=== PATIENT | female | born 1985 | race Caucasian/White ===

== ENCOUNTER 2016-04-19 10:12 | Outpatient (CLI) | payer OTHER ==
[~2016-04-19 10:12] MED LIST: PRENAT PO
--- NOTE | 2016-04-19 11:01 | RADRPT ---
PROCEDURE: US OB. CLINICAL INDICATION: Size and dates , post dates TECHNIQUE: Multiple sonographic images of the pelvis and gravid uterus were obtained. The images were reviewed on a PACS workstation. COMPARISON: No prior studies are available for comparison. FINDINGS: There is a single viable intrauterine gestation. Cardiac activity is present with 146 beats per min [place]iston. There is a vertex presentation. The placenta is anterior. There is no evidence for an abruption or placenta previa. Measurements were made in order to determine age. The results are as follows: BPD =9.9 cm HC =34.9 cm AC =35.3 cm FL =7.5 cm Estimated gestational age of approximately 39 weeks and 5 days based on ultrasound measurements. Clinical age: 40 weeks and 5 days. The estimated date of delivery is 04/21/16, based on ultrasound measurements. The EFW = 3769 g, 52.3%, based on LMP age. RPTAT: AA IMPRESSION: Single viable intrauterine gestation of approximately 39 weeks and 5 days based on ultrasound measu rements. .Justin Delaney MD, Date Time Electronically viewed and signed by .Justin Delaney MD, on 04/19/2016 11:01 .S/
--- NOTE | 2016-04-19 11:04 | RADRPT ---
PROCEDURE: US OB biophysical profile. CLINICAL INDICATION: decreased movements, post dates TECHNIQUE: Multiple sonographic images of the pelvis were obtained. The images were reviewed on a PACS workstation. COMPARISON: No prior studies are available for comparison. FINDINGS: There is a single viable intrauterine gestation. Cardiac activity is present with 150 beats per min triston. There is a vertex presentation. The placenta is anterior. There is no evidence of placental abruption. There is a normal amount of amniotic fluid with an FATOU = 14.8 cm. Biophysical profile: movement 2/2 tone 2/2. breathing 2/2 FATOU 2/2 Total 10/16 RPTAT: AA . IMPRESSION: Normal biophysical profile. . .Justin Delaney MD, Date Time Electronically viewed and signed by .Justin Delaney MD, MD on 04/19/2016 11:04 .S/
--- NOTE | 2016-04-19 11:51 | PN ---
Date/Time of Note Date/Time of Note DATE: 04/19/16 TIME: 11:29 OB Subjective Subjective Subjective April 19, 2016 Triage Consult: This is a triage consult on Sonal Epps This patient is a 30 years old 1 para 0 with EDC of 04/14/2016. Which makes her 40 weeks and 5 days She was sent from the clinic for evaluation of the condition. Patient does not agree with induction and she wants to wait till completed 41 weeks or the start of spontaneous contraction . On examination Her ear nose and throat appears to be normal No thyroid enlargement. No lymph node enlargement anywhere in the body Chest is clear to auscultation Heart is normal sinus rhythm Blood pressure 135/73 pulse rate 90 temperature 98.1 Abdomen is soft At this time she does not have any contraction. heart tone is normal No deceleration, fairly good variability. Occasional acceleration She refused to have a pelvic examination We do not know the status of her cervix Her NST is reactive Biophysical profile is 8/8 ,FATOU 14.87 The estimated weight is 3769 g As I mentioned she is not interested in being induced In consultation with Dr. Saravia will send her home to be seen in the clinic and to return in 2 days for further monitoring if she is still . MAEVE GUERRA MD Apr 19, 2016 11:41
== END 2016-04-19 11:30 | disposition home or self-care (01) ==
LOC: OBT 10:12 → L-D 10:13 → OBT 11:30
PROVIDERS: ATTEND Obstetrics & Gynecology
DX: O48.0 Post-term pregnancy (principal); Z3A.40 40 weeks gestation of pregnancy
CPT/HCPCS: 76815; 76818; Z7500; G0463

== ENCOUNTER 2016-04-21 15:55 | Outpatient (CLI) | payer OTHER ==
[~2016-04-21] VITALS: Ht 165.1 cm; Wt 93.9 kg
[2016-04-21 16:04] VITALS: BP 137/64; PULSE 82; RESP 17; Ht 165.1 cm; Wt 93.9 kg
--- NOTE | 2016-04-21 16:57 | RADRPT ---
PROCEDURE: US OB biophysical profile. CLINICAL INDICATION: decreased movements, post dates TECHNIQUE: Multiple sonographic images of the pelvis were obtained. The images were reviewed on a PACS workstation. COMPARISON: 04/19/2016 FINDINGS: There is a single viable intrauterine gestation. Cardiac activity is present with 136 beats per min triston. There is a vertex presentation. The placenta is anterior. There is no evidence of placental abruption. There is a slightly decreased amount of amniotic fluid with an FATOU = 7.2 cm. Biophysical profile: movement 2/2 tone 2/2. breathing 2/2 FATOU 2/2 Total 10/16 RPTAT: AA . IMPRESSION: Normal biophysical profile. Mild oligohydramnios. . .Justin Delaney MD, Date Time Electronically viewed and signed by .Justin Delaney MD, on 04/21/2016 16:57 .S/
--- NOTE | 2016-04-21 18:05 | TRIAGE ---
OB Triage Datetime Report Generated by CPN: 04/21/2016 18:05 Datetime: 04/21/2016 17:53 Labor Evaluation Frequency: 0 Monitor Mode: External Pattern: Normal: <= 5 Contractions in 10 Minutes Resting Tone [place]: Relaxed Heart Rate FHR Baseline Rate: 135 Monitor Mode: External US FHR Baseline Changes: No Baseline Change Variability: Moderate 6-25 bpm Accelerations: 15X15 Decelerations: None Category: Category I Pain Assessment Pain Scale: 0 Pain Presence: None/Denies Pain Type: N/A Vaginal Exam Membrane Status: Intact Datetime: 04/21/2016 16:36 Labor Evaluation Frequency: 0 Monitor Mode: External Pattern: Normal: <= 5 Contractions in 10 Minutes Resting Tone [place]: Relaxed Heart Rate FHR Baseline Rate: 135 Monitor Mode: External US FHR Baseline Changes: No Baseline Change Variability: Moderate 6-25 bpm Accelerations: 15X15 Decelerations: None Category: Category I Pain Assessment Pain Scale: 0 Pain Presence: None/Denies Pain Type: N/A Vaginal Exam Membrane Status: Intact Datetime: 04/21/2016 16:13 Time of Arrival: 04/21/2016 15:53 EGA: 41.0 Arrived By: Ambulatory Arrived From: Home Chief Complaint: PT PRESENTS TO TRIAGE FOR FOLLOW UP NST/BPP DUE TO BEING POST TERM(41 WEEKS) Movement: Present Contractions: Denies/Absent Rupture of Membranes: Denies Vaginal Bleeding: None Vaginal Discharge: Denies Recent Sexual Intercouse: Denies Abdominal Trauma: Not Applicable Patient Complaints: None Additional Patient Complaints: DEPRESSION Time Provider Notified: 04/21/2016 16:08 Provider Notified: [facility] Initial Plan: EFM/BPP/NST Datetime: 04/21/2016 16:00 Assessment Type: Triage Maternal Assessment Level of Consciousness: Fully Conscious DTR's/Clonus: DTRs 2+; No Clonus Headache: Denies Blurred Vision: No Respiratory Effort: Unlabored; Regular Rhythm Breath Sounds, Left: Clear and Equal Breath Sounds, Right: Clear and Equal Nausea/Vomiting: Denies RUQ Epigastric Pain: Denies Lower Extremities Edema: None Degree: None Upper Extremities Edema: None Degree: None Facial Edema: None Fall Risk Assessment History of Falling: (0) No Secondary Diagnosis: (0) No Ambulatory Aid: (0) Bedrest/Nurse Assist IV Therapy: (0) No Gait: (0) Normal/Bedrest/Immobile Mental Status: (0) Oriented to Own Ability Fall Score: 0 Fall Risk Score Definition: No Risk: No action required Pain Assessment Pain Scale: 0 Pain Presence: None/Denies Pain Type: N/A Datetime: 04/19/2016 11:16 Stage of : OB Triage Datetime: 04/19/2016 10:27 Stage of : OB Triage Assessment Type: Triage Maternal Assessment Level of Consciousness: Fully Conscious DTR's/Clonus: DTRs 2+; No Clonus Headache: Denies Blurred Vision: No Respiratory Effort: Unlabored; Regular Rhythm; Equal Expansion Breath Sounds, Left: Clear and Equal Breath Sounds, Right: Clear and Equal Nausea/Vomiting: Denies RUQ Epigastric Pain: Denies Lower Extremities Edema: None Degree: None Upper Extremities Edema: None Degree: None Facial Edema: None Temperature Route: Axillary Fall Risk Assessment History of Falling: (0) No Secondary Diagnosis: (0) No Ambulatory Aid: (0) Bedrest/Nurse Assist IV Therapy: (0) No Gait: (0) Normal/Bedrest/Immobile Mental Status: (0) Oriented to Own Ability Fall Score: 0 Fall Risk Score Definition: No Risk: No action required Labor Evaluation Frequency: X1 Monitor Mode: External Duration (sec)2399: 50 Quality: Mild Pattern: Normal: <= 5 Contractions in 10 Minutes Resting Tone [place]: Relaxed Heart Rate FHR Baseline Rate: 145 Monitor Mode: External US Variability: Moderate 6-25 bpm Accelerations: 10X10 Decelerations: None Category: Category I Pain Assessment Pain Scale: 0 Pain Presence: None/Denies Pain Type: N/A Pain Goal: 3 Pain Relief Measures: Comfort Measures Datetime: 01/24/2016 12:03 Time of Arrival: 04/19/2016 10:12 EGA: 40.5 Arrived By: Ambulatory Arrived From: Dr. Prado Chief Complaint: OCCAS UC'S, DENIES BLEEDING OR LEAKING OF FLUID Movement: Present Contractions: Occasional Rupture of Membranes: Denies Vaginal Bleeding: None Vaginal Discharge: Present Recent Sexual Intercouse: Denies Abdominal Trauma: Not Applicable Patient Complaints: Cramping Initial Plan: MONITOR, NST/BPP, FATOU, EFW Datetime: 01/24/2016 11:30 Assessment Type: Triage Maternal Assessment Level of Consciousness: Fully Conscious DTR's/Clonus: DTRs 2+; No Clonus Headache: Denies Blurred Vision: No Respiratory Effort: Unlabored; Regular Rhythm; Equal Expansion Breath Sounds, Left: Clear and Equal Breath Sounds, Right: Clear and Equal Nausea/Vomiting: Denies RUQ Epigastric Pain: Denies Lower Extremities Edema: None Degree: None Upper Extremities Edema: None Degree: None Facial Edema: None Fall Risk Assessment History of Falling: (0) No Secondary Diagnosis: (0) No Ambulatory Aid: (0) Bedrest/Nurse Assist IV Therapy: (0) No Gait: (0) Normal/Bedrest/Immobile Mental Status: (0) Oriented to Own Ability Fall Score: 0 Fall Risk Score Definition: No Risk: No action required Datetime: 01/24/2016 11:28 EGA: 28.3 Datetime: 01/24/2016 11:27 Time of Arrival: 01/24/2016 11:15 Arrived By: Ambulatory Chief Complaint: C/O NAUSEA FOR 2 DAYS Movement: Present Contractions: Denies/Absent Rupture of Membranes: Denies Vaginal Bleeding: None Vaginal Discharge: Denies Recent Sexual Intercouse: Denies Abdominal Trauma: Not Applicable Patient Complaints: Nausea Provider Notified: CHARLIE
--- NOTE | 2016-04-21 18:12 | QN ---
Documentation Comment Laborist Dr Saravia's pt 30 y.o. G1 with an IUP at 41 weeks here for a BPP with FATOU and NST for postdates. +FM. No VB or leaking or UC's, per pt. Pt states her cx was closed on exam 04/16 and she thought the exam was a little too invasive and uncomfortable so does not want to be rechecked, much less have her membranes stripped although that helped her sister (who is with her) go into labor. PMHx: none. PSHx: none. NKDA. BP= 137/64. T= 98.0. NST: baseline 130 bpm with accels to 170 bpm. No decels. No UC's. BPP 10/16. FATOU 7.2. VTX. Anterior placenta. A: IUP at 41 weeks. Postdates. Pt adamantly does not want to be induced and even checked. P: Per Dr Saravia, he wants her to be rechecked in 2 days 04/23. Review things she can do to try to induce labor including having intercourse, ambulating, amongst other things. ROSALBA CURRY MD Apr 21, 2016 18:12
== END 2016-04-21 17:58 | disposition home or self-care (01) ==
LOC: OBT 15:55 → L-D 15:57 → OBT 17:58
PROVIDERS: ATTEND Obstetrics & Gynecology
DX: O48.0 Post-term pregnancy (principal); Z3A.41 41 weeks gestation of pregnancy
CPT/HCPCS: 76818; Z7500; G0463

== ENCOUNTER 2016-04-24 15:13 | Outpatient (CLI) | payer OTHER ==
[~2016-04-24] VITALS: Ht 165.1 cm; Wt 92.6 kg
[2016-04-24 15:22] VITALS: Ht 165.1 cm; Wt 92.6 kg
[2016-04-24 15:31] VITALS: BP 125/70; PULSE 77; RESP 18
--- NOTE | 2016-04-24 15:58 | RADRPT ---
PROCEDURE: OB ultrasound for biophysical profile CLINICAL INDICATION: Biophysical profile. . Post dates TECHNIQUE: Multiple sonographic images of the pelvis were obtained. Transabdominal view of the gr avid uterus are available for review. The images were reviewed on a PACS workstation. COMPARISON: OB ultrasound 04/21/2016 FINDINGS: Single intrauterine gestation. Presentation: cephalic. Placenta: anterior breathing movement = 2/2 tone = 2/2 motion = 2/2 FATOU = 2/2 FATOU = 8.2 cm heart rate: 163 beats per minute IMPRESSION: Single intrauterine gestation. Biophysical profile 10/16 Normal FATOU RPTAT: AADD .Krishan Barrientos MD, Date Time Electronically viewed and signed by .Krishan Barrientos MD, on 04/24/2016 15:58 .B/
--- NOTE | 2016-04-24 16:00 | RADRPT ---
PROCEDURE: Obstetrical ultrasound. CLINICAL INDICATION: , evaluation. Pelvic pain. Post dates TECHNIQUE: Transabdominal sonographic images of the pelvis are obtained. COMPARISON: OB ultrasound 04/21/2016 FINDINGS: Single intrauterine gestation. There is a cephalic presentation. Measurements were made in order to determine age. The results are as follows: BPD = 9.79 cm HC = 34.75 cm AC = 36.42 cm FL = 7.64 cm Heart rate = 146 beats per minute The placenta is anterior. There is no evidence for an abruption or placenta previa. Ovaries are not visualized. IMPRESSION: Single intrauterine gestation of approximately 40 weeks 0 days by ultrasound criteria. Estimated weight = 3972 g RPTAT: AADD .Krishan Barrientos MD, Date Time Electronically viewed and signed by .Krishan Barrientos MD, on 04/24/2016 15:59 .B/
== END 2016-04-24 16:30 | disposition home or self-care (01) ==
LOC: OBT 15:13 → L-D 15:13 → OBT 16:30
PROVIDERS: ATTEND Obstetrics & Gynecology
DX: O48.0 Post-term pregnancy (principal); R10.2 Pelvic and perineal pain; Z3A.40 40 weeks gestation of pregnancy
CPT/HCPCS: 76815; 76818; Z7500; G0463

== ENCOUNTER 2016-04-26 14:23 | Outpatient (CLI) | payer OTHER ==
[~2016-04-26] VITALS: Ht 165.1 cm; Wt 93.6 kg
[2016-04-26 14:39] VITALS: Ht 165.1 cm; Wt 93.6 kg
--- NOTE | 2016-04-26 15:37 | RADRPT ---
PROCEDURE: US OB biophysical profile. CLINICAL INDICATION: evaluation TECHNIQUE: Multiple sonographic images of the pelvis were obtained. The images were reviewed on a PACS workstation. COMPARISON: Save ultrasound from 04/24/2016 FINDINGS: There is a single viable intrauterine gestation. Cardiac activity is present with 154 beats per min [place]. There is a vertex presentation. The placenta is anterior. There is a 2.2 cm round hypoechoic lesion in the placenta. There is no ev idence of placental abruption. There is a normal amount of amniotic fluid with an FATOU = 15.5 cm. Biophysical profile: movement 2/2 tone 2/2. breathing 2/2 FATOU 2/2 Total 10/16 RPTAT: AA . IMPRESSION: Normal biophysical profile. Normal FATOU of 15.5 cm. 2.2 cm round hypoechoic lesion in the placenta is nonspecific, but may be a placental pereira. Physician Errol Date Time Electronically viewed and signed by Physician Errol on 04/26/2016 15:36 /
--- NOTE | 2016-04-26 16:05 | CONS ---
Date/Time of Note Date/Time of Note DATE: 04/26/16 TIME: 15:57 Consultation Date/Type/Reason Admit Date/Time April 26, 2016 Triage consult This patient is a 30 years old 1 para 0 with EDC of April 14, 2016 which makes her 41 weeks and 5 days.. Although she is 5 days postop now 40 weeks and 5 days. She does not have to. be induced. Came to triage area for further monitoring examination seemed has not changed that much. She does not have much of the contractions her abdomen is soft. Baby worked in in vertex presentation. Rare contractions Patient did not want to have another pelvic examination. Her vital signs are stable her blood pressure 134/83 pulse rate 81 the ultrasound study that was performed. Biophysical profile is 8 over 8 FATOU is 15.5 cm urinalysis was. Disposition. Her condition was discussed with her and wants more offered to be induced. However she would like to complete 41 weeks and will return in 2 days for induction if not in labor Initial Consult Date MAEVE GUERRA MD Apr 26, 2016 16:05
== END 2016-04-26 15:59 | disposition home or self-care (01) ==
LOC: OBT 14:23 → L-D 14:24 → OBT 15:59
PROVIDERS: ATTEND Obstetrics & Gynecology
DX: O62.9 Abnormality of forces of labor, unspecified (principal); Z3A.40 40 weeks gestation of pregnancy
CPT/HCPCS: 76818; Z7500; G0463

== ENCOUNTER 2016-04-28 12:06 | Inpatient (IN) | payer OTHER ==
[2016-04-29] MEDS ORDERED: LIDOCAINE 1% (MPF) 30 ML INJ INJ PRN (13:00)
[2016-04-29] MEDS ORDERED: METHYLERGONOVINE 0.2 MG INJ IM PRN ×2 (13:00→20:30)
[2016-04-29] MEDS ORDERED: CARBOPROST 250 MCG INJ IM PRN ×2 (13:00→20:30)
[2016-04-29] MEDS ORDERED: OXYTOCIN 30 UNITS/LR 500 ML IV PRN ×2 (13:00→20:30)
[2016-04-29] MEDS ORDERED: BUTORPHANOL 2 MG INJ IV PRN (13:00)
[2016-04-29] MEDS ORDERED: IBUPROFEN 600 MG TAB PO PRN (13:00)
[2016-04-29] MEDS ORDERED: MISOPROSTOL 200 MCG TAB PR PRN ×2 (13:00→20:30)
[2016-04-29] MEDS ORDERED: OXYTOCIN 30 UNITS/LR 500 ML IV SCH ×2 (13:00)
[2016-04-29 13:30] LABS: EOSINOPHILS % 0.1 % (0.0-7.0); HEMATOCRIT 36.9 % (37.0-47.0); HEMOGLOBIN 12.7 g/dl (12.0-16.0); LYMPHOCYTES # 1.4 10^3/ul (0.8-2.9); LYMPHOCYTES % 8.1 % (15.0-51.0); MEAN CORPUSCULAR HEMOGLOBIN 31.2 pg (29.0-33.0); MEAN CORPUSCULAR HGB CONC 34.5 g/dl (32.0-37.0); MEAN CORPUSCULAR VOLUME 90.5 fl (82.0-101.0); MEAN PLATELET VOLUME 10.8 fl (7.4-10.4); MONOCYTE # 0.7 10^3/ul (0.3-0.9); MONOCYTES % 4.3 % (0.0-11.0); NEUTROPHIL # 14.6 10^3/ul (1.6-7.5); NEUTROPHILS % 87.5 % (39.0-77.0); PLATELET COUNT 182 10^3/UL (140-440); RED BLOOD COUNT 4.07 10^6/ul (4.20-5.40); RED CELL DISTRIBUTION WIDTH 13.4 % (11.5-14.5); UNCORRECTED WBC 16.7 10^3/ul (4.8-10.8); WHITE BLOOD COUNT 16.7 10^3/ul (4.8-10.8)
[2016-04-29] MEDS: LACTATED RINGER'S 1,000 ML IV SCH ×2 (13:36→19:28)
[2016-04-29 13:39] LABS: INR 0.9; PROTIME 12.1 Sec (12.2-14.2); PT RATIO 0.9
[2016-04-29 13:40] LABS: PARTIAL THROMBOPLASTIN TIME 22.8 Sec (25.0-35.0)
[2016-04-29] MEDS ORDERED: CLINDAMYCIN 900 MG/D5W (PMX) 50 ML IV SCH (14:00)
[2016-04-29 14:02] LABS: CONDITION 1
[2016-04-29] MEDS ORDERED: LACTATED RINGER'S 1,000 ML IV PRN (15:00)
[2016-04-29] MEDS ORDERED: morphine SULFATE/PF (10 MG/10 ML) INJ ONE (16:25)
[2016-04-29] MEDS ORDERED: OXYTOCIN 10 UNIT INJ ONE ×2 (16:25)
[2016-04-29] MEDS ORDERED: PHENYLephrine (100 MCG/ML) 5ML SYG ONE (16:40)
[2016-04-29] MEDS ORDERED: ONDANSETRON 4 MG INJ ONE (16:40)
[2016-04-29] MEDS ORDERED: DEXAMETHASONE 4 MG/ML 1 ML INJ ONE (16:41)
[2016-04-29] MEDS ORDERED: METOCLOPRAMIDE 10 MG INJ ONE (16:41)
[2016-04-29] MEDS ORDERED: KETOROLAC 30 MG INJ ONE (16:41)
--- NOTE | 2016-04-29 16:42 | RADRPT ---
PROCEDURE: US OB. CLINICAL INDICATION: Post dates. Follow-up evaluation TECHNIQUE: Pelvic ultrasound performed for biophysical profile. COMPARISON: 04/26/2016 FINDINGS: Single intrauterine gestation present with heart rate at 166 beats per minute. Presentation is ceph alic. Placenta is anterior, grade II. Biophysical profile score is 4/8 (breathing=0, movement=2, t one =0, fluid volume=2). Amniotic fluid volume is within normal limits, with FATOU = 8.8 cm. RPTAT:HJJR IMPRESSION: 1. Biophysical profile score decreased to 4/8 from normal on the study of 04/26/2016. 2. Amniotic fluid index decreased from 15.5 cm on 04/26/2016 to 8.8 cm. Physician Parrish Date Time Electronically viewed and signed by Physician Parrish on 04/29/2016 16:42 /
[2016-04-29] MEDS ORDERED: MEPERIDINE 100 MG INJ ONE (16:53)
[2016-04-29] MEDS ORDERED: NALOXONE (0.4 MG/ML) INJ IV PRN (17:30)
[2016-04-29] MEDS ORDERED: HYDROmorphONE (0.2 MG/ML) 10ML SYG IV PRN ×3 (17:30)
[2016-04-29] MEDS ORDERED: EPHEDrine SULFATE 50 MG/5 ML SYG IV PRN (17:30)
[2016-04-29] MEDS ORDERED: DIPHENHYDRAMINE 50 MG INJ IV PRN ×2 (17:30)
[2016-04-29] MEDS ORDERED: morphine 2 MG INJ IV PRN ×2 (17:30)
[2016-04-29] MEDS ORDERED: ONDANSETRON 4 MG INJ IV PRN ×2 (17:30)
[2016-04-29] MEDS ORDERED: KETOROLAC 30 MG INJ IV PRN (17:30)
[2016-04-29] MEDS ORDERED: MEPERIDINE 25 MG INJ IV PRN (17:30)
[2016-04-29] MEDS ORDERED: HYDROmorphONE 1 MG/ML SYG IV PRN ×2 (17:30)
[2016-04-29] MEDS ORDERED: morphine (1 MG/ML) 10ML SYRINGE IV PRN ×3 (17:30)
--- NOTE | 2016-04-29 18:09 | OPR ---
DATE OF OPERATION: PREOPERATIVE DIAGNOSES: Intrauterine at 42 weeks 1 day, tachycardia, biophysical pr ofile 4/8, not anticipating a timely delivery. POSTOPERATIVE DIAGNOSES: Intrauterine at 42 weeks 1 day, tachycardia, biophysical p rofile 48, not anticipating a timely delivery. OPERATION PERFORMED: Primary transverse low cervical section. SURGEON: Heaven Flaherty MD RAW STOCK MACHINE LOADER: Clyde Spence MD ANESTHESIA: Spinal. ANESTHESIOLOGIST: Dr. Brady. FINDINGS: Live baby boy with the 8 and 9. Baby weighed 3415 grams, 7 pounds 8 ounces. DETAILS OF THE PROCEDURE: Under satisfactory spinal anesthesia, the patient was prepped and draped and placed in supine position, tilted to the left. Pfannenstiel incision was made, incision carried through the subcutaneous tissue. Bleeders brought under control with electrocautery. Fascia incis ed to the length of incision. Rectus muscle divided in midline. Peritoneum exposed, entered throug h a transverse incision. Exploration of abdomen revealed a gravid uterus at term, normal appearing tubes and ovaries, and evidence of labor. Bladder flap was developed. Transverse incision was made in the lower segment of the uterus. Amniotic sacs ruptured. Scant amount of amniotic fluid noted. Live baby boy was delivered from unengaged vertex with a nuchal cord x1, tight around the baby's n petros. Nasal oropharyngeal suction was performed and baby handed to the team for immediate a ttention. The patient received 20 units of Pitocin. Placenta delivered manually intact. Uterine c avity cleaned with wet sponge and drainage established. Uterus closed in 2 layers using Monocryl #1 in continuous fashion. Peritoneal cavity irrigated with warm saline. Sponge, needle and instrumen t reported to be correct. Abdominal peritoneum closed with 2-0 chromic catgut continuously. Rectus muscle approximated with few interrupted 2-0 chromic catgut. Fascia closed with #1 PDS in a contin uous fashion. Subcutaneous tissue approximated with 2-0 chromic catgut. Skin closed with gloria. Estimated blood loss 600 to 700 mL. Urine bag contained 200 mL of clear urine. Patient tolerated procedure well, transferred to recovery room in a good condition. Dictated By: HEAVEN FLAHERTY MD HF/NTS Conf#: [id number] DID#: [id number]
--- NOTE | 2016-04-29 18:19 | HP ---
DATE OF ADMISSION: 04/29/2016 HISTORY OF PRESENT ILLNESS: This is a 30-year-old, 1, para 0 with an EDC of 04/14/2016 admi tted to [facility] at 42 weeks and 1 day in early labor. On admission pelvic dudley ied out. Cervix 0.5 cm dilated, 30% to 40% effaced, presenting part vertex at -2 station. Contract ions every 3 to 4 minutes, quality mild, duration 50 to 60 seconds, and variability moderate with ac celerations 15 x 15. Considered category 1 heart tracing. The patient continued labor under close observation. At approximately 1400, baby's heart rate became tachycardic. Biophysical profil es requested. The report of the biophysical profile was 4/8 and the score of 4 was 2 for fluid and 2 for heartbeat. breathing, movement, and tone were missing in the biophysical profile. This was discussed with the patient and her and the family present, since there was no anticipat ion of a short and timely delivery, the alternative route of delivery by section was discus sed, complications, and indications were thoroughly discussed, and all the questions answered. The patient is being prepared to undergo a primary transverse low cervical section. This patie nt has been under the care of the [facility] as of 33 weeks of , and her pregnanc y course was not complicated with gestational diabetes, -induced hypertension, or any other serious surgical or medical condition. GYNECOLOGIC HISTORY: Menarche at age 14, regular period. PAST MEDICAL HISTORY: No history of previous or any surgeries or hospitalization accordin g to her . ALLERGIES: DENIES ALLERGY TO ANY KNOWN MEDICATION. SOCIAL HABITS: Denies smoking or drinking. FAMILY HISTORY: Unremarkable. REVIEW OF SYSTEMS: Within normal. PHYSICAL EXAMINATION: VITAL SIGNS: 5 feet 5 inches, 210 pounds with the temperature 98.7, pulse of 85, respiration 19, bl ood pressure 140/83. HEAD, EARS, NOSE, AND THROAT: Negative. NECK: Supple. No thyromegaly. LUNGS: Clear to P and A. HEART: Normal sinus rhythm. No murmur. BREASTS: Status compatible with state of the . No abnormal palpable mass. No nipple retr action or discharge. LYMPHATICS: No axillary adenopathy and no supraclavicular adenopathy. ABDOMEN: Measures, from symphysis pubis to the highest part of the uterine fundus, approximately 38 cm with the heart rate at 160s with acceleration. PELVIC: Normal ____ introitus, normal vagina, cervix 0.5 cm, 50% to 60% effaced. Presenting part v ertex at -2 station. EXTREMITIES: No edema, no varicosities. IMPRESSION: 1. Intrauterine at 42 weeks and 1 day. 2. Nonreassuring heart tracing (tachycardia) with biophysical profile 06/16. PLAN: The patient is being prepared to undergo a primary . Complications of the surgery, including bowel or bladder injury, infection, hemorrhage, and hematoma have been discussed with the patient and she is willing to go ahead with procedure and she has signed the informed consent. Dictated By: HEAVEN FLAHERTY MD HF/NTS Conf#: [id number] DID#: [id number]
[2016-04-29 20:30] VITALS: BP 124/62; PULSE 92; RESP 18
[2016-04-29] MEDS ORDERED: LANOLIN 7 GM TUBE TOP PRN (20:30)
[2016-04-29] MEDS ORDERED: CEFAZOLIN 1 GM/50 ML (PMX) 50 ML IVPB SCH (20:30)
[2016-04-29] MEDS ORDERED: ACETAMINOPHEN/CODEINE #3 TAB PO PRN (20:30)
[2016-04-29] MEDS: SENNA/DOCUSATE NA (8.6MG/50MG) TAB PO SCH (21:00)
[2016-04-30 00:15] VITALS: BP 116/56; PULSE 98; RESP 18
[2016-04-30] MEDS ORDERED: CLINDAMYCIN 900 MG/D5W (PMX) 50 ML IVPB SCH (01:00)
--- NOTE | 2016-04-30 03:12 | CONS ---
Date/Time of Note Date/Time of Note DATE: 04/30/16 TIME: 03:11 Consultation Date/Type/Reason Admit Date/Time Apr 29, 2016 at 12:10 Initial Consult Date 04/29/16 Type of Consultation: Anestheisa Reason for Consultation 24 HR Interval Summary Free Text/Dictation 30 yr old female went under due to non-reassuring heart rate. Spinal anesthesia was give, and intrathecal Duramorph was given for post-op pain control. Patient is doing well post op, pain is well controlled. No nausea or vomiting noted. No apnea reported. No itching and no sensory or motor loss noted. Patient will be followed up by her primary team. Exam/Review of Systems Vital Signs Vitals Vital Signs Date Time Temp Pulse Resp B/P Pulse Ox O2 Delivery O2 Flow Rate FiO2 04/30/16 00:15 98.3 98 18 116/56 Room Air 04/29/16 23:20 98 21 Intake and Output 04/29/16 04/29/16 04/30/16 14:59 22:59 06:59 Intake Total 50 ml 1000 ml Output Total 600 ml Balance 50 ml 400 ml Results Result Diagram: 04/29/16 1322 Results 24 hrs Laboratory Tests Test 04/29/16 13:22 Activated Partial Thromboplast Time 22.8 L Basophils # 0.0 Basophils % 0.0 Blood Morphology Comment Eosinophils # 0.0 Eosinophils % 0.1 Hematocrit 36.9 L Hemoglobin 12.7 Hepatitis B Surface Antigen NEGATIVE INR International Normalized Ratio 0.90 Lymphocytes # 1.4 Lymphocytes % 8.1 L Mean Corpuscular Hemoglobin 31.2 Mean Corpuscular Hemoglobin Concent 34.5 Mean Corpuscular Volume 90.5 Mean Platelet Volume 10.8 H Monocytes # 0.7 Monocytes % 4.3 Neutrophils # 14.6 H Neutrophils % 87.5 H Nucleated Red Blood Cells # 0.0 Nucleated Red Blood Cells % 0.0 Platelet Count 182 Prothrombin Time 12.1 L Prothrombin Time Ratio 0.9 Red Blood Count 4.07 L Red Cell Distribution Width 13.4 White Blood Count 16.7 H Medications Medications Current Medications Lactated Ringer's (Lr) 1,000 ml @ 125 mls/hr Q8H IV Last administered on t 19:28; Admin Dose 125 MLS/HR; Start 04/29/16 at 12:57 Ketorolac Tromethamine (Toradol) 30 mg Q6H PRN IV PAIN; Start 04/29/16 at 17:30 ; Stop 04/30/16 at 17:29 Morphine Sulfate (morphine) 2 mg Q3H PRN IV PAIN LEVEL 1-5; Start 04/29/16 at 17:30; Stop 04/30/16 at 17:29 Morphine Sulfate (morphine) 4 mg Q3H PRN IV PAIN LEVEL 6-10; Start 04/29/16 at 17:30; Stop 04/30/16 at 17:29 Hydromorphone HCl (Dilaudid) 0.2 mg Q3H PRN IV PAIN LEVEL 1-5; Start 04/29/16 at 17:30; Stop 04/30/16 at 17:29 Hydromorphone HCl (Dilaudid) 0.4 mg Q3H PRN IV PAIN LEVEL 6-10; Start 04/29/16 at 17:30; Stop 04/30/16 at 17:29 Diphenhydramine HCl (Benadryl) 25 mg Q6H PRN IV ITCHING; Start 04/29/16 at 17: 30; Stop 04/30/16 at 17:29 Ondansetron HCl (Zofran Inj) 4 mg Q6H PRN IV NAUSEA AND/OR VOMITING; Start at 17:30; Stop 04/30/16 at 17:29 Acetaminophen/ Codeine Phosphate (Tylenol No.3) 1 tab Q4H PRN PO PAIN LEVEL 4-6 ; Start 04/29/16 at 20:30 Acetaminophen/ Codeine Phosphate (Tylenol No.3) 2 tab Q4H PRN PO PAIN LEVEL 7- 10; Start 04/29/16 at 20:30 Oxycodone/ Acetaminophen (Percocet (5/ 325)) 1 tab Q4H PRN PO PAIN LEVEL 4-6; Start 04/29/16 at 20:30 Oxycodone/ Acetaminophen (Percocet (5/ 325)) 2 tab Q4H PRN PO PAIN LEVEL 7-10; Start 04/29/16 at 20:30 Simethicone (Mylicon) 160 mg Q8H PRN PO DISTENSION/GAS/BLOATING; Start at 20:30 Senna/Docusate Sodium (Senokot-S) 1 tab BID PO ; Start 04/29/16 at 21:00 Diphtheria/ Tetanus/Acell Pertussis 0.5 ml 0.5 ml ONCE ONCE IM* ; Start at 09:00; Stop 05/02/16 at 09:01 Oxytocin/Lactated Ringer's 500 ml @ 0 mls/hr ONCE PRN IV For Hemorrhage Management; Start 04/29/16 at 20:30 Methylergonovine Maleate (Methergine) 0.2 mg ONCE PRN IM VAGINAL BLEEDING; Start 04/29/16 at 20:30 Carboprost Tromethamine (Hemabate) 250 mcg ONCE PRN IM VAGINAL BLEEDING; Start 04/29/16 at 20:30 Misoprostol 1000 mcg 1,000 mcg ONCE PRN NM VAGINAL BLEEDING; Start 04/29/16 at 20:30 Oxytocin/Lactated Ringer's 500 ml @ 125 mls/hr Q4H IV ; Start 04/29/16 at 20:13 Ibuprofen (Motrin) 600 mg Q6 PO ; Start 04/30/16 at 00:00 DAVEY RICHARD MD Apr 30, 2016 03:12
[2016-04-30] MEDS: LACTATED RINGER'S 1,000 ML IV SCH ×3 (03:43→20:57)
[2016-04-30 04:00] VITALS: BP 109/59; PULSE 89; RESP 18
[2016-04-30] MEDS: IBUPROFEN 600 MG TAB PO SCH ×4 (06:00→18:00)
[2016-04-30 07:35] LABS: BASOPHILS % 0.1 % (0.0-2.0); HEMATOCRIT 30.7 % (37.0-47.0); HEMOGLOBIN 10.6 g/dl (12.0-16.0); LYMPHOCYTES # 1.1 10^3/ul (0.8-2.9); LYMPHOCYTES % 4.9 % (15.0-51.0); MEAN CORPUSCULAR HEMOGLOBIN 31.6 pg (29.0-33.0); MEAN CORPUSCULAR HGB CONC 34.6 g/dl (32.0-37.0); MEAN CORPUSCULAR VOLUME 91.1 fl (82.0-101.0); MEAN PLATELET VOLUME 11.1 fl (7.4-10.4); MONOCYTE # 0.8 10^3/ul (0.3-0.9); MONOCYTES % 3.6 % (0.0-11.0); NEUTROPHIL # 20.6 10^3/ul (1.6-7.5); NEUTROPHILS % 91.4 % (39.0-77.0); PLATELET COUNT 165 10^3/UL (140-440); RED BLOOD COUNT 3.37 10^6/ul (4.20-5.40); RED CELL DISTRIBUTION WIDTH 13.4 % (11.5-14.5); UNCORRECTED WBC 22.5 10^3/ul (4.8-10.8); WHITE BLOOD COUNT 22.5 10^3/ul (4.8-10.8)
[2016-04-30 07:40] LABS: CONDITION 1; LH ANALYZER COMMENTS 1
[2016-04-30 07:45] VITALS: BP 114/62; PULSE 87; RESP 17
[2016-04-30] MEDS: SENNA/DOCUSATE NA (8.6MG/50MG) TAB PO SCH ×2 (09:00→21:00)
[2016-04-30 12:05] VITALS: BP 112/56; PULSE 88; RESP 19
[2016-04-30 15:50] VITALS: BP 113/68; PULSE 96; RESP 19
--- NOTE | 2016-04-30 17:48 | PN ---
Date/Time of Note Date/Time of Note DATE: 04/30/16 TIME: 17:46 OB Subjective Subjective Subjective Post day 1 Afebrile, constantine sign is stable, abdomen soft uterus firm incision dry lochia moderate ambulation recommended Laboratory Tests Test 04/30/16 06:52 Basophils # 0.010^3/ul Basophils % 0.1% Blood Morphology Comment Eosinophils # 0.010^3/ul Eosinophils % 0.0% Hematocrit 30.7% Hemoglobin 10.6g/dl Lymphocytes # 1.110^3/ul Lymphocytes % 4.9% Mean Corpuscular Hemoglobin 31.6pg Mean Corpuscular Hemoglobin Concent 34.6g/dl Mean Corpuscular Volume 91.1fl Mean Platelet Volume 11.1fl Monocytes # 0.810^3/ul Monocytes % 3.6% Neutrophils # 20.610^3/ul Neutrophils % 91.4% Nucleated Red Blood Cells # 0.010^3/ul Nucleated Red Blood Cells % 0.0/100WBC Platelet Count 26351^3/UL Red Blood Count 3.3710^6/ul Red Cell Distribution Width 13.4% White Blood Count 22.510^3/ul Current Medications Medications (Trade) Dose Ordered Sig/Lindy Route PRN Reason Start Time Stop Time Status Last Admin Dose Admin Lactated Ringer's 1,000 ml @ 125 mls/hr Q8H IV 04/29/16 12:57 04/30/16 12:09 Clindamycin HCl/ Dextrose (Cleocin 900 Mg/ D5W (Pmx)) 50 ml @ 100 mls/hr Q8 IV 04/29/16 14:00 04/29/16 20:19 DC 04/29/16 13:36 Butorphanol Tartrate (Stadol) 2 mg Q2H PRN IV PAIN 04/29/16 13:00 04/29/16 20:19 DC Lidocaine 30 ml 30 ml ONCE PRN INJ EPISIOTOMY/TEARING 04/29/16 13:00 04/29/16 20:19 DC Oxytocin/Lactated Ringer's 500 ml @ 125 mls/hr ONCE -MAY REPEAT X1 IV 04/29/16 13:00 04/29/16 20:19 DC Oxytocin/Lactated Ringer's 500 ml @ 125 mls/hr ONCE IV 04/29/16 13:00 04/29/16 20:19 DC Ibuprofen 600 mg 600 mg ONCE PRN PO Mild Pain (Pain Score 1-3) 04/29/16 13:00 04/29/16 17:24 DC Lactated Ringer's 1,000 ml @ 2,000 mls/hr Q30M PRN IV PRE-EPIDURAL BOLUS 04/29/16 15:00 04/29/16 20:19 DC Oxytocin/Lactated Ringer's 500 ml @ 0 mls/hr ONCE PRN IV For Hemorrhage Management 04/29/16 13:00 04/29/16 20:19 DC Methylergonovine Maleate (Methergine) 0.2 mg ONCE PRN IM VAGINAL BLEEDING 04/29/16 13:00 04/29/16 20:19 DC Carboprost Tromethamine (Hemabate) 250 mcg ONCE PRN IM VAGINAL BLEEDING 04/29/16 13:00 04/29/16 20:19 DC Misoprostol (Cytotec) 1,000 mcg ONCE PRN MA VAGINAL BLEEDING 04/29/16 13:00 04/29/16 20:19 DC Morphine Sulfate (Duramorph) 10 mg STK-MED ONCE .ROUTE 04/29/16 16:25 04/29/16 16:26 DC Oxytocin (Oxytocin) 10 units STK-MED ONCE .ROUTE 04/29/16 16:25 04/29/16 16:26 DC Oxytocin (Oxytocin) 10 units STK-MED ONCE .ROUTE 04/29/16 16:25 04/29/16 16:26 DC Ondansetron HCl (Zofran Inj) 4 mg STK-MED ONCE .ROUTE 04/29/16 16:40 04/29/16 16:41 DC Phenylephrine HCl (Crispin-Synephrine Inj Syg) 500 mcg STK-MED ONCE .ROUTE 04/29/16 16:40 04/29/16 16:41 DC Metoclopramide HCl (Reglan) 10 mg STK-MED ONCE .ROUTE 04/29/16 16:41 04/29/16 16:42 DC Ketorolac Tromethamine (Toradol) 30 mg STK-MED ONCE .ROUTE 04/29/16 16:41 04/29/16 16:42 DC Dexamethasone (Decadron) 4 mg STK-MED ONCE .ROUTE 04/29/16 16:41 04/29/16 16:42 DC Meperidine HCl (Demerol) 100 mg STK-MED ONCE .ROUTE 04/29/16 16:53 04/29/16 16:54 DC Naloxone HCl (Narcan) 0.1 mg Q2M PRN IV FOR RESP RATE 8 OR LESS 04/29/16 17:30 04/29/16 20:19 DC Ketorolac Tromethamine (Toradol) 30 mg Q6H PRN IV PAIN 04/29/16 17:30 04/30/16 17:29 DC 04/30/16 15:49 Morphine Sulfate (morphine) 2 mg Q3H PRN IV PAIN LEVEL 1-5 04/29/16 17:30 04/30/16 17:29 DC Morphine Sulfate (morphine) 4 mg Q3H PRN IV PAIN LEVEL 6-10 04/29/16 17:30 04/30/16 17:29 DC Hydromorphone HCl (Dilaudid) 0.2 mg Q3H PRN IV PAIN LEVEL 1-5 04/29/16 17:30 04/30/16 17:29 DC Hydromorphone HCl (Dilaudid) 0.4 mg Q3H PRN IV PAIN LEVEL 6-10 04/29/16 17:30 04/30/16 17:29 DC Diphenhydramine HCl (Benadryl) 25 mg Q6H PRN IV ITCHING 04/29/16 17:30 04/30/16 17:29 DC Ondansetron HCl (Zofran Inj) 4 mg Q6H PRN IV NAUSEA AND/OR VOMITING 04/29/16 17:30 04/30/16 17:29 DC Miscellaneous Information (* Miscellaneous Pharmacy Order) Duramorph: 0.2 mg Spi... GIVEN XX 04/29/16 17:30 04/29/16 20:19 DC Morphine Sulfate (morphine (REC)) 2 mg PACU ORDER PRN IV MILD PAIN LEVEL 1-3 04/29/16 17:30 04/29/16 20:00 DC Morphine Sulfate (morphine (REC)) 4 mg PACU ORDER PRN IV MODERATE PAIN LEVEL 4-6 04/29/16 17:30 04/29/16 20:00 DC Morphine Sulfate (morphine (REC)) 6 mg PACU ORDER PRN IV SEVERE PAIN LEVEL 7-10 04/29/16 17:30 04/29/16 20:00 DC Hydromorphone HCl (Dilaudid (Rec)) 0.2 mg PACU ORDER PRN IV MILD PAIN LEVEL 1-3 04/29/16 17:30 04/29/16 20:00 DC Hydromorphone HCl (Dilaudid (Rec)) 0.4 mg PACU ORDER PRN IV MODERATE PAIN LEVEL 4-6 04/29/16 17:30 04/29/16 20:00 DC Hydromorphone HCl (Dilaudid (Rec)) 0.6 mg PACU ORDER PRN IV SEVERE PAIN LEVEL 7-10 04/29/16 17:30 04/29/16 20:00 DC Ondansetron HCl (Zofran Inj) 4 mg PACU ORDER PRN IV NAUSEA AND/OR VOMITING 04/29/16 17:30 04/29/16 20:00 DC Ephedrine Sulfate 5 mg PACU ORDER PRN IV MAP LESS THAN 60 04/29/16 17:30 04/29/16 20:00 DC Meperidine HCl (Demerol) 25 mg PACU ORDER PRN IV POST-OP RIGORS 04/29/16 17:30 04/29/16 20:00 DC Diphenhydramine HCl (Benadryl) 25 mg PACU ORDER PRN IV PRURITUS 04/29/16 17:30 04/29/16 20:00 DC Ibuprofen (Motrin) 600 mg ONCE PRN PO Mild Pain (Pain Score 1-3) 04/30/16 18:00 04/30/16 18:00 DC Acetaminophen/ Codeine Phosphate (Tylenol No.3) 1 tab Q4H PRN PO PAIN LEVEL 4-6 04/29/16 20:30 Acetaminophen/ Codeine Phosphate (Tylenol No.3) 2 tab Q4H PRN PO PAIN LEVEL 7-10 04/29/16 20:30 Oxycodone/ Acetaminophen (Percocet (5/ 325)) 1 tab Q4H PRN PO PAIN LEVEL 4-6 04/29/16 20:30 Oxycodone/ Acetaminophen (Percocet (5/ 325)) 2 tab Q4H PRN PO PAIN LEVEL 7-10 04/29/16 20:30 Ibuprofen (Motrin) 600 mg Q6 PO 04/30/16 18:00 UNV Simethicone (Mylicon) 160 mg Q8H PRN PO DISTENSION/GAS/BLOATING 04/29/16 20:30 Senna/Docusate Sodium (Senokot-S) 1 tab BID PO 04/29/16 21:00 Lanolin (Aig-U-Ogujry) 1 applic BEDSIDE MEDICATION PRN TOP BEDSIDE FOR LEXY TO NIPPLES 04/29/16 20:30 Diphtheria/ Tetanus/Acell Pertussis 0.5 ml 0.5 ml ONCE ONCE IM* 05/02/16 09:00 05/02/16 09:01 Oxytocin/Lactated Ringer's 500 ml @ 0 mls/hr ONCE PRN IV For Hemorrhage Management 04/29/16 20:30 Methylergonovine Maleate (Methergine) 0.2 mg ONCE PRN IM VAGINAL BLEEDING 04/29/16 20:30 Carboprost Tromethamine (Hemabate) 250 mcg ONCE PRN IM VAGINAL BLEEDING 04/29/16 20:30 Misoprostol 1000 mcg 1,000 mcg ONCE PRN MA VAGINAL BLEEDING 04/29/16 20:30 Cefazolin Sodium 50 ml @ 100 mls/hr ONCE IVPB 04/29/16 20:30 04/29/16 21:00 DC Oxytocin/Lactated Ringer's 500 ml @ 125 mls/hr Q4H IV 04/29/16 20:13 Ibuprofen 600 mg 600 mg Q6 PO 04/30/16 00:00 Clindamycin HCl/ Dextrose (Cleocin 900 Mg/ D5W (Pmx)) 50 ml @ 50 mls/hr ONCE IVPB 04/30/16 01:00 04/30/16 01:59 DC 04/30/16 00:55 HEAVEN FLAHERTY MD Apr 30, 2016 17:48
[2016-04-30] MEDS ORDERED: IBUPROFEN 600 MG TAB PO PRN (18:00)
[2016-04-30] MEDS ORDERED: IBUPROFEN 600 MG TAB PO SCH (18:00)
[2016-04-30] MEDS: OXYTOCIN 30 UNITS/LR 500 ML IV SCH ×2 (19:30→20:13)
[2016-04-30 20:00] VITALS: BP 119/67; PULSE 113; RESP 20
[2016-05-01] MEDS: OXYTOCIN 30 UNITS/LR 500 ML IV SCH ×2 (00:13→04:13)
[2016-05-01] MEDS: IBUPROFEN 600 MG TAB PO SCH ×4 (00:27→19:20)
[2016-05-01 04:15] VITALS: BP 114/54; PULSE 91; RESP 18
[2016-05-01] MEDS: LACTATED RINGER'S 1,000 ML IV SCH (04:25)
[2016-05-01] MEDS: ACETAMINOPHEN/CODEINE #3 TAB PO PRN ×2 (07:06→11:54)
[2016-05-01 08:30] VITALS: BP 124/76; PULSE 73; RESP 18
[2016-05-01] MEDS: SENNA/DOCUSATE NA (8.6MG/50MG) TAB PO SCH ×2 (09:00→21:00)
--- NOTE | 2016-05-01 13:06 | PN ---
Date/Time of Note Date/Time of Note DATE: 05/01/16 TIME: 13:05 OB Subjective Subjective Subjective Post due to A. fib vital signs are stable, abdomen soft, uterus firm, lochia normal, incision dry, bowel sounds present, no bowel movement, enema ordered. HEAVEN FLAHERTY MD May 01, 2016 13:06
[2016-05-01] MEDS ORDERED: NA PHOSPHATE/BIPHOS 133 ML ENEMA PR ONE (13:30)
[2016-05-01] MEDS: OXYCODONE/ACETAMINOPHEN (5/325) TAB PO PRN ×3 (15:48→20:56)
[2016-05-01 16:20] VITALS: BP 137/80; PULSE 85; RESP 20
[2016-05-01 20:55] VITALS: BP 114/60; PULSE 87; RESP 18
[2016-05-02] MEDS: IBUPROFEN 600 MG TAB PO SCH ×3 (00:21→12:00)
[2016-05-02] MEDS: OXYCODONE/ACETAMINOPHEN (5/325) TAB PO PRN ×3 (01:31→10:59)
[2016-05-02 04:30] VITALS: BP 109/62; PULSE 76; RESP 18
[2016-05-02 08:10] VITALS: BP 133/66; PULSE 88; RESP 17
[2016-05-02] MEDS ORDERED: DIPHTH/TET/ACEL PERTUSS (ADULT) 0.5 ML VIAL IM* ONE (09:00)
[2016-05-02] MEDS: SENNA/DOCUSATE NA (8.6MG/50MG) TAB PO SCH (09:00)
--- NOTE | 2016-05-02 12:39 | PN ---
Date/Time of Note Date/Time of Note DATE: 05/02/16 TIME: 12:37 OB Subjective Subjective Subjective Post day 2 Afebrile, vital signs stable abdomen soft incision dry lochia moderate had normal bowel movement extremity normal patient is discharged home with follow- up instructions to be seen in the office in 5 days to DC her gloria patient received a prescription of Motrin and Tylenol 3 for relief of the pain HEAVEN FLAHERTY MD May 02, 2016 12:38
--- NOTE | 2016-05-02 12:41 | DS ---
Date/Time of Note Date/Time of Note DATE: 05/02/16 TIME: 12:39 Obstetrical Discharge Record Final Diagnosis Final Diagnosis: Term delivered Section Section: Primary Condition on Discharge Physical Assessment Last Vitals: Vital sign stable afebrile abdomen soft incision dry gloria in place had normal bowel movement discharged home recommended to be seen in the office in 5 days to discontinue her gloria, home medication Motrin and Tylenol 3 advised to continue taking vitamins and iron supplement Voiding: Yes Bowel Movement: Yes Breast: Soft, non-tender, Filling Fundus: Firm Abdomen and Incision: Dry healing well Calf Tenderness: No Patient Condition: Good HEAVEN FLAHERTY MD May 02, 2016 12:41
--- NOTE | 2016-05-02 12:44 | PD.PPDC ---
[employer] OPERATOR Discharge Instruction Condition Patient Condition: Good Diet Diet: Resume Regular Diet Activity/Restrictions Activity: Normal Activity May Shower Restrictions: No Exercising No Lifting No Driving No Sexual Activity Nothing in the Vagina No M[place] No Tampons, douche Wound/Drain Care Instructions Wound/Drain Care Instructions: Remove Steri Strips in 1 week Follow-up Follow-up with Physician: 5, Day/Days Return to clinic for PHYSIOGNOMIST Instructions: Fever greater than 101 Worsening abdominal pain More than 2 pads per hour OB Instructions: Breast Tenderness Blurried Vision Headache Surgical Instructions: Incisional Drainage Incisional Redness HEAVEN FLAHERTY MD May 02, 2016 12:44
[2016-05-02 13:09] LABS: BASOPHILS % 0.3 % (0.0-2.0); EOSINOPHILS # 0.1 10^3/ul (0.0-0.5); EOSINOPHILS % 1.2 % (0.0-7.0); HEMATOCRIT 33.1 % (37.0-47.0); HEMOGLOBIN 11.2 g/dl (12.0-16.0); LYMPHOCYTES # 1.7 10^3/ul (0.8-2.9); LYMPHOCYTES % 15.3 % (15.0-51.0); MEAN CORPUSCULAR HEMOGLOBIN 31.2 pg (29.0-33.0); MEAN CORPUSCULAR VOLUME 91.9 fl (82.0-101.0); MEAN PLATELET VOLUME 9.6 fl (7.4-10.4); MONOCYTE # 0.5 10^3/ul (0.3-0.9); MONOCYTES % 4.5 % (0.0-11.0); NEUTROPHILS % 78.7 % (39.0-77.0); PLATELET COUNT 242 10^3/UL (140-440); RED CELL DISTRIBUTION WIDTH 13.5 % (11.5-14.5); UNCORRECTED WBC 11.4 10^3/ul (4.8-10.8); WHITE BLOOD COUNT 11.4 10^3/ul (4.8-10.8)
[2016-05-02 13:14] LABS: CONDITION 1
== END 2016-05-02 15:20 | disposition home or self-care (01) | DRG 766 ==
LOC: EDSTATUS 12:06 → L-D 04-29 12:10 → PP1 04-29 20:28
PROVIDERS: ADMIT Obstetrics & Gynecology; ATTEND Obstetrics & Gynecology
PROC: 10D00Z1 Extraction of Products of Conception, Low, Open Approach (ICD-10-PCS; principal; 2016-04-29 16:45)
DX: O48.0 Post-term pregnancy (principal); O76 Abnormality in fetal heart rate and rhythm complicating labor and delivery; Z3A.42 42 weeks gestation of pregnancy; Z37.0 Single live birth
CPT/HCPCS: 76818; 85025; 85610; 85730; 86592; 86885; 86900; 86901; 87340; 90715; 94760; 99464; J1100; J1885; J2175; J2210; J2274; J2370; J2405; J2590; J2765; J7120

== ENCOUNTER 2016-04-28 15:44 | Outpatient (CLI) | payer OTHER ==
[~2016-04-28] VITALS: Ht 165.1 cm; Wt 95.4 kg
[2016-04-28 15:48] VITALS: Ht 165.1 cm; Wt 95.4 kg
[2016-04-28 15:49] VITALS: BP 146/65; RESP 16
--- NOTE | 2016-04-28 20:14 | QN ---
Documentation Comment Laborist Assumed care of the patient at 1900, at which time she was sitting in the hallways outside of the triage room and adamant about leaving triage to get a smoothie. Apparently pt had come for surveillance given postterm GA. She had been seen by Dr. Saravia earlier, an SVE was done (40%/-2) and induction of labor was strongly recommended, however pt declined. BPP and FATOU ordered more than 3hrs ago and still not done despite overhead paging the technical solutions consultant. Pt declines to wait any further and desires to leave triage. Discussed with the patient the recommendation for IOL at 42wks given concern for placental insufficiency and resulting distress or IUFD as the gestational age increases. Pt also advised that there is an increased risk of C/ S at this gestational age due to distress in the setting of the stress of labor. Risks of leaving AMA also include distress or and possible poor effects on maternal health as a result of compromise or demise. Process for induction explained in great detail, including increased risk of C/ S with induction. Questions answered to patient and her sister's satisfaction. Pt was able to verbalize risks of leaving AMA without the ultrasound for BPP/ FATOU and of declining induction, including and maternal . Pt states she will return by Saturday. Offered membrane stripping prior to pt leaving triage and pt declined. FHT reviewed (noncontinuous due to pt poor tolerance of EFM) and reassuring. Baseline 130s, mod arturo, +accels, no decels. [place] w/irregular UCs. FKC, Labor and ROM precautions reviewed. VASU CRESPO MD Apr 28, 2016 20:12
[2016-04-29] MEDS ORDERED: OXYTOCIN 30 UNITS/LR 0 ML IV ONE (18:18)
== END 2016-04-28 19:30 | disposition left against medical advice (07) ==
LOC: OBT 15:44 → L-D 15:45 → OBT 19:30
PROVIDERS: ATTEND Obstetrics & Gynecology
DX: O48.0 Post-term pregnancy (principal); Z3A.42 42 weeks gestation of pregnancy; Z53.21 Procedure and treatment not carried out due to patient leaving prior to being seen by health care provider
CPT/HCPCS: G0463; J2590